=== PATIENT | female | born 1975 | race Caucasian/White ===

== ENCOUNTER 2020-02-18 01:55 | Emergency (ER) | payer OTHER ==
[~2020-02-18] VITALS: Ht 157.4 cm; Wt 86.4 kg
[2020-02-18 02:03] VITALS: BP 155/97
--- OUTSIDE RECORDS SUMMARY | 2020-02-18 02:03 | XMS REPORT | Continuity of Care Document ---
Author Author [facility] Organization [facility] [employer] Address Unknown Phone Unavailable Allergies There is no data. Medications There is no data. Problems There is no data. Procedures There is no data. Results There is no data. Encounters ACCT No. Visit Date/Time Discharge Status Pt. Type Provider Facility Loc./Unit Complaint [id number] 02/18/2020 02:00:[address] Emergency ANDREINA LANDON, TOOTIE Schulte Via [facility] ER FS FELL [place]
[2020-02-18] MEDS ORDERED: KETOROLAC 60 MG/2 ML VIAL IM STA (02:19)
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
== END 2020-02-18 02:29 | disposition home or self-care (01) ==
LOC: ER FS 02:00
DX: S00.83XA Contusion of other part of head, initial encounter (principal); S00.33XA Contusion of nose, initial encounter; S80.02XA Contusion of left knee, initial encounter; R40.2142 Coma scale, eyes open, spontaneous, at arrival to emergency department; R40.2252 Coma scale, best verbal response, oriented, at arrival to emergency department; R40.2362 Coma scale, best motor response, obeys commands, at arrival to emergency department; F17.210 Nicotine dependence, cigarettes, uncomplicated; Z88.5 Allergy status to narcotic agent; W01.198A Fall on same level from slipping, tripping and stumbling with subsequent striking against other object, initial encounter; Y92.828 Other wilderness area as the place of occurrence of the external cause
CPT/HCPCS: 99284

== ENCOUNTER 2020-09-27 05:56 | Emergency (ER) | payer OTHER ==
[2020-09-27] MEDS ORDERED: ONDANSETRON 4 MG (ZOFRAN) ORAL DISSOLVE TAB ONE (06:03)
[2020-09-27] MEDS ORDERED: SUMAtriptan 6 MG/0.5 ML (IMITREX) INJ SQ ONE ×3 (06:03→06:15)
[2020-09-27] MEDS ORDERED: ONDANSETRON 4 MG (ZOFRAN) ORAL DISSOLVE TAB PO STA ×2 (06:08→06:10)
--- NOTE | 2020-09-27 06:16 | ED Headache ---
General Chief Complaint: Head/Cervical Problems Stated Complaint: MIGRAINE Source: patient Exam Limitations: no limitations History of Present Illness Date Seen by Provider: Sep 27, 2020 Time Seen by Provider: 06:00 Initial Comments Patient is a 45-year-old female who presents to the emergency department today with a chief complaint of splitting headache. Patient states her headache started around 9 PM last night. She states she took a low-dose muscle relaxer because she had some neck stiffness. She states it did not help. She tried to go to bed and woke up at 2 AM with worsening headache. Patient states that she has a history of migraines. She states this 1 is different because it does not seem to want to go away. She did not try any ahaq-btm-qwzrhlc medication such as Tylenol, Aleve, Excedrin. She denies any recent illnesses such as fevers, chills, cough or congestion. She has had some nausea and vomiting with this migraine. She denies any visual complaints. All other review of systems reviewed and negative except as stated. Timing/Duration: 4-6 hours Severity/Quality: severe, throbbing Location: global Prior Headaches/Recent Trauma: frequent headaches Modifying Factors: worse with exposure to light, worse with movement Associated Symptoms: nausea/vomiting, stiff neck Allergies and Home Medications Allergies Coded Allergies: hydrocodone (Verified Allergy, Unknown, 02/18/20) oxycodone (Verified Allergy, Unknown, 02/18/20) Patient Home Medication List Home Medication List Reviewed: Yes Review of Systems Review of Systems Constitutional: see HPI Eyes: Photophobia Ears, Nose, Mouth, Throat: no symptoms reported Respiratory: no symptoms reported Cardiovascular: no symptoms reported Gastrointestinal: nausea, vomiting Genitourinary: no symptoms reported Musculoskeletal: muscle pain (neck pain) Skin: no symptoms reported Psychiatric/Neurological: Headache All Other Systems Reviewed Negative Unless Noted: Yes Past Hkewyai-Tckghm-Pdqpug Hx Patient Social History Alcohol Use: Denies Use Smoking Status: Current Everyday Smoker Type Used: Cigarettes Past Medical History Surgeries: Yes Hysterectomy, Oophorectomy Respiratory: No Cardiac: No Neurological: Yes Headaches /Migraines Genitourinary: No Gastrointestinal: No Musculoskeletal: No Endocrine: No HEENT: No Cancer: No Psychosocial: No Integumentary: No Physical Exam Vital Signs Vital Signs - First Documented 09/27/20 05:59 Temp 36.5 Pulse 74 Resp 18 B/P (MAP) 111/92 (98) Pulse Ox 99 O2 Delivery Room Air Capillary Refill : Height, Weight, BMI Height: '" Weight: lbs. oz. kg; 34.00 BMI Method: General Appearance: WD/WN, moderate distress HEENT: PERRL/EOMI Neck: full range of motion, supple Cardiovascular: regular rate, rhythm Respiratory: lungs clear, normal breath sounds, no respiratory distress, no accessory muscle use Extremities: normal inspection Psychiatric: alert, oriented x 3, depressed affect Crainal Nerves: normal hearing, normal speech, PERRL Motor/Sensory: no motor deficit, no sensory deficit Skin: normal color, warm/dry Progress/Results/Core Measures Results/Orders My Orders Orders - MESFIN OROZCO MD Ondansetron Oral Dissolve Tab (Zofran (09/27/20 06:08) Sumatriptan Injection (Imitrex Injection (09/27/20 06:15) Ondansetron Oral Dissolve Tab (Zofran (09/27/20 06:03) Sumatriptan Injection (Imitrex Injection (09/27/20 06:03) Sumatriptan Injection (Imitrex Injection (09/27/20 06:15) Ondansetron Oral Dissolve Tab (Zofran (09/27/20 06:10) Medications Given in ED Current Medications Medications Dose Ordered Sig/Grabiel Route Start Time Stop Time Status Last Admin Dose Admin Sumatriptan Succinate 6 mg ONCE ONCE SQ 09/27/20 06:15 09/27/20 06:16 DC 09/27/20 06:13 6 MG Vital Signs/I&O 09/27/20 09/27/20 05:59 06:55 Temp 36.5 36.5 Pulse 74 74 Resp 18 18 B/P (MAP) 111/92 (98) 111/92 (98) Pulse Ox 99 99 O2 Delivery Room Air Room Air Progress Progress Note : Time: 06:57 Progress Note Patient was feeling much better after zofran and imitrex; ready for discharge. Departure Impression Primary Impression: Migraine Qualified Codes: G43.909 - Migraine, unspecified, not intractable, without status migrainosus Disposition: 01 HOME, SELF-CARE Condition: Stable Departure-Patient Inst. Decision time for Depature: 06:14 Referrals: BOSSMAN DOMINGO MD (PCP/Family) Primary Care Physician Patient Instructions: Migraines (DC) Add. Discharge Instructions: Drink plenty of fluids to stay well hydrated. You can try over the counter medications such as Excedrin Migraine or Alleve for headache. Follow up with your primary care doctor. Return to the Emergency Department for persistent headache symptoms, especially associated with fever, vomiting or any other emergent concerning symptoms. MESFIN OROZCO MD Sep 27, 2020 06:16
[2020-09-27 06:55] VITALS: BP 111/92
== END 2020-09-27 06:57 | disposition home or self-care (01) ==
LOC: EDUNIT# 05:56 → ER FS 05:58
DX: G43.909 Migraine, unspecified, not intractable, without status migrainosus (principal); F17.210 Nicotine dependence, cigarettes, uncomplicated; Z88.5 Allergy status to narcotic agent
CPT/HCPCS: 99284

== ENCOUNTER → 2020-10-07 | Outpatient (CLI) | payer OTHER ==
[~2020-10-07] MED LIST: CATHETER FLUSH 10 ML SYR IV PRN
--- NOTE | 2020-10-07 13:51 | Diagnostic Imaging Report ---
INDICATION: Right upper quadrant pain. Patient received intravenous dose 5.4 mCi tc 99m Choletec sequential imaging of the abdomen performed. There is prompt homogenous distribution of radiopharmacy throughout the liver parenchyma. Within 15 minutes time activity shown within the intra and extra hepatic bile ducts as well as the gallbladder. By 30 minutes activity spilled into the proximal bowel. Gallbladder stimulation was performed with the ingestion of 8 ounces of ensure at the 45 minute interval. This resulted in minimal diminished gallbladder ejection. The estimated ejection fraction was about 28%. IMPRESSION: Decreased gallbladder ejection fraction 28% with ensure stimulation. HIDA scan otherwise normal. Dictated by: Dictated on workstation # [id number]
== END ==
LOC: CARD 09:11
PROVIDERS: ATTEND Family Medicine
DX: R10.11 Right upper quadrant pain (principal)
CPT/HCPCS: 78227; A9537

== ENCOUNTER 2020-10-29 05:30 | Outpatient (CLI) | payer OTHER ==
[~2020-10-29] VITALS: Ht 157.5 cm; Wt 90.5 kg
[2020-10-29] MEDS ORDERED: FLUV50TA3 PO (08:50)
[2020-10-29] MEDS ORDERED: PANT40TA52 PO (08:50)
[2020-10-29] MEDS ORDERED: SMTR50T PO (08:50)
[2020-10-31] MEDS ORDERED: TRM50T PO (08:46)
== END 2020-10-29 09:05 | disposition home or self-care (01) ==
LOC: PREOP 05:30
PROVIDERS: ATTEND Surgery
DX: Z01.818 Encounter for other preprocedural examination (principal)

== ENCOUNTER 2020-10-31 06:07 | Day surgery (SDC) | payer OTHER ==
[~2020-10-31] VITALS: Ht 157.5 cm; Wt 90.5 kg
[2020-10-31] VITALS (10 sets, daily range): BP systolic 114–153; BP diastolic 83–99
[~2020-10-31 06:07] MED LIST changes: -CATHETER FLUSH 10 ML SYR IV PRN; +FLUV50TA3 PO; +PANT40TA52 PO; +SMTR50T PO
[2020-10-31] MEDS ORDERED: ceFAZolin 2 GM IV Premixed 50 ML IV ONE (06:15)
[2020-10-31] MEDS ORDERED: ROCURONIUM 10 MG/ML 5 ML SYRINGE IV ONE (06:31)
[2020-10-31] MEDS ORDERED: ONDANSETRON 4 MG/2 ML (SDV) Z0FRAN ONE (06:31)
[2020-10-31] MEDS ORDERED: LIDOCAINE PF 2% 5 ML (XYLOCAINE) VIAL ONE (06:31)
[2020-10-31] MEDS ORDERED: proPOfol 200 MG/20 ML (DIPRIVAN) VIAL IV ONE (06:31)
[2020-10-31] MEDS ORDERED: SEVOFLURANE (ULTANE) 15 ML INHAL SOLN ONE ×2 (06:32→08:27)
[2020-10-31] MEDS ORDERED: GLYCOPYRROLATE 0.2 MG/ML (ROBINUL) 2 ML VIAL ONE (06:32)
[2020-10-31] MEDS ORDERED: MIDAZOLAM 2 MG/2 ML (VERSED) VIAL ONE (06:32)
[2020-10-31] MEDS ORDERED: NEOSTIGMINE 3 MG/3 ML VIAL ONE (06:32)
[2020-10-31] MEDS ORDERED: fentaNYL INJ 100 MCG/2 ML AMP ONE ×2 (06:32→08:17)
[2020-10-31] MEDS: LACTATED RINGERS 1,000 ML IV PRN ×2 (06:40→08:30)
[2020-10-31] MEDS ORDERED: IOPAMIDOL 61% 30 ML (ISOVUE 300) VIAL ONE (06:51)
[2020-10-31] MEDS ORDERED: LIDOCAINE/EPI 1%-1:100,000 (XYLOCAINE) 20ML ONE (06:52)
[2020-10-31] MEDS ORDERED: CATHETER FLUSH 10 ML SYR IV PRN (07:00)
--- NOTE | 2020-10-31 07:56 | Progress Note-Pre Operative ---
Pre-Operative Progress Note H&P Reviewed The H&P was reviewed, patient examined and no changes noted. Date Seen by Provider: Oct 31, 2020 Time Seen by Provider: 07:56 Date H&P Reviewed: Oct 31, 2020 Time H&P Reviewed: 07:56 Pre-Operative Diagnosis: biliary dyskinesia, abdominal pain CUCA ZIMMERMAN DO Oct 31, 2020 07:56
--- NOTE | 2020-10-31 08:45 | Progress Note-Post Operative ---
Post-Operative Progess Note Surgeon (s)/Floater Operator (s) Surgeon CUCA ZIMEMRMAN DO Floater Operator: Dr. Casillas to assist in retraction dissection and closure. Pre-Operative Diagnosis biliary dyskinesia, abdominal pain Post-Operative Diagnosis same Procedure & Operative Findings Date of Procedure 10/31/20 Procedure Performed/Findings PROCEDURE: Laparoscopic cholecystectomy with intraoperative cholangiogram. COMPLICATIONS: None. PROCEDURE: The patient was taken to the operating suite and was prepped and draped in sterile fashion. A surgical pause was performed. Just superior to the umbilicus, a 12 mm incision was made. Dissection was taken down to the fascia, which was then scored and grasped with a Ken and the abdomen was then entered. A 0 Vicryl suture was placed in a dlytdn-dc-cooay fashion and a Finley trocar was placed and secured. Pneumoperitoneum was achieved. A 5mm trochar place in the subxyphoid and 2 in the right upper quadrant. The gallbladder was then grasped and elevated. Adhesions taken down off of the gallbladder with blunt and cautery dissection. The cystic duct, and cystic artery were then dissected out. Clip was placed on the distal portion of the cystic duct which was then partially transected. An arrow catheter was inserted into the duct. The cholangiogram was then performed. No filing defects and contrast made its way into the duodenum. Catheter removed. Clips were placed on proximal portion of the cystic duct and then the duct was then transected. Clips were placed along the proximal and distal portion of the cystic artery which was then transected. Hook cautery was used to dissect the gallbladder from the gallbladder fossa achieving hemostasis. The gallbladder was placed in an Endobag and removed through the 12 mm trocar site. The abdomen was then reinspected. Copious amounts of irrigation were used to irrigate the abdomen and there were no signs of active bleeding. Hemostasis had been achieved. The 12 mm fascial defect was then closed with 0 Vicryl suture that had been placed in a jpkvel-er-[id number] fashion. The abdomen was then desufflated, the trocars were removed. The abdomen was then washed and dried. The skin was then closed using 4-0 Monocryl in a subcuticular fashion. The abdomen was washed and dried and Skin Affix was place over incisions. Patient tolerated the procedure well without any complications and was taken to the recovery room in stable condition. Anesthesia Type general Estimated Blood Loss Estimated blood loss (mL): minimal Specimens/Packing Specimens Removed gallbladder CUCA ZIMMERMAN DO Oct 31, 2020 08:45
[2020-10-31] MEDS ORDERED: TRM50T PO (08:46)
--- NOTE | 2020-10-31 08:47 | Discharge Inst-Simple/Standard ---
Discharge Inst-Standard Discharge Medications New, Converted or Re-Newed RX: RX on Chart Patient Instructions/Follow Up Plan of Care/Instructions/FU: 2-3 weeks Emeterio Activity as Tolerated: No Discharge Diet: Regular Diet Other Inst to Patient Follow up Appt: Make appointment for 2 weeks. Instructions: No lifting greater than 10 pounds. No strenuous activity. May shower in 24 hours, no tub bath or soaking. Use incentive spirometer at home as directed. No Smoking Skin/Wound Care: You have special glue over incision, it will fall off on it's own. Symptoms to Report: Appetite Changes, Extremity Discoloration, Numbness/Tingling, Swelling Increased, Bleeding Excessive, Eyesight Changes, Pain Increased, Urine Color Change, Constipation(Persistent), Fever over 101 degree F, Pain/Pressure in ch est, Urinating Difficulty, Cough Up/Vomit Blood, Heart Beat Irreg/Pounding, Pain/Pressure in jaw, Vaginal Bleeding Increase, Cramps in feet or legs, Lightheadedness, Pain/Pressure in shoulder, Diarrhea(Persistent), Memory Changes Suddenly, Questions/Concerns, Weight gain consecutive days, Dizziness/Fainting, Nausea/Vomiting, Shortness of Breath, Weight gain over 2 pounds. If eyes or skin turn yellow notify physician. If questions or concerns contact your physician Or seek help at emergency department. CUCA ZIMMERMAN DO Oct 31, 2020 08:47
[2020-10-31] MEDS ORDERED: HYDROmorphone 2 MG/ML VIAL (DILAUDID) IV ONE (09:00)
[2020-10-31] MEDS ORDERED: ONDANSETRON 4 MG/2 ML (SDV) Z0FRAN IVP PRN (09:00)
[2020-10-31] MEDS ORDERED: morphine INJ 10 MG/ML 1ML (SYR OR VIAL) IVP ONE (09:00)
[2020-10-31] MEDS ORDERED: morphine INJ 10 MG/ML 1ML (SYR OR VIAL) ONE (09:16)
--- NOTE | 2020-10-31 09:39 | Anesthesia-General Post-Op ---
General Patient Condition Mental Status/LOC: Same as Preop Cardiovascular: Satisfactory Nausea/Vomiting: Absent Respiratory: Satisfactory Pain: Controlled Complications: Absent Post Op Complications Complications None Follow Up Care/Instructions Patient Instructions None needed. Anesthesia/Patient Condition Patient Condition Patient is doing well, C/O some abd pain which is to be expected, stable vital signs, no apparent adverse anesthesia problems. CLAUDIA LACEY DO Oct 31, 2020 09:39
--- NOTE | 2020-10-31 09:58 | Diagnostic Imaging Report ---
EXAM: Fluoroscopy at 8:32 AM INDICATION: Laparoscopic cholecystectomy Fluoroscopic assistance was provided for Dr. Kishore Storm during the patient's laparoscopic cholecystectomy procedure. 7.7 seconds of fluoroscopy time was utilized. 35 spot films of the right upper quadrant were received from the OR. There has been opacification of the common bile duct via a cystic duct catheter. The common bile duct does not appear to be dilated and there is no defect within the duct to suggest a retained calculus. Contrast is seen extending into the small bowel and into the main pancreatic duct. IMPRESSION: Fluoroscopic assistance was provided for Dr. Kishore Storm. Dictated by: Dictated on workstation # [id number]
== END 2020-10-31 10:50 | disposition home or self-care (01) ==
LOC: SDC 06:07
PROVIDERS: ATTEND Surgery
DX: K81.1 Chronic cholecystitis (principal); K82.8 Other specified diseases of gallbladder; F41.9 Anxiety disorder, unspecified; G43.909 Migraine, unspecified, not intractable, without status migrainosus; K21.9 Gastro-esophageal reflux disease without esophagitis; E66.9 Obesity, unspecified; Z68.36 Body mass index [BMI] 36.0-36.9, adult; F17.210 Nicotine dependence, cigarettes, uncomplicated; Z90.710 Acquired absence of both cervix and uterus; Z79.899 Other long term (current) drug therapy
CPT/HCPCS: 76000; 87081; 88304

== ENCOUNTER 2021-06-26 01:50 | Emergency (ER) | payer OTHER ==
[~2021-06-26] VITALS: Ht 157 cm; Wt 89.0 kg
[~2021-06-26 01:50] MED LIST changes: +FLUV50TA23 PO; -FLUV50TA3 PO; +TRM50T PO
[2021-06-26 01:53] VITALS: BP 117/69
[2021-06-26] MEDS ORDERED: PANTOPRAZOLE 40 MG (PROTONIX) VIAL IV STA (02:04)
[2021-06-26] MEDS ORDERED: ASPIRIN 81 MG CHEW (CHILDREN'S ASA) PO ONE (02:15)
[2021-06-26] MEDS ORDERED: LIDOCAINE 2% VISCOUS 15 ML UDC PO ONE (02:15)
[2021-06-26] MEDS ORDERED: ANTACID SUSP 30 ML UDC (MYLANTA) PO ONE (02:15)
--- NOTE | 2021-06-26 02:18 | ED Chest Pain ---
General Chief Complaint: Cardiac/General Problems Stated Complaint: CHEST PAIN Nursing Triage Note: Pt c/o center chest tightness x 20 mintues that woke her up from sleep. Pt denies cardiac hx. Source: patient History of Present Illness Date Seen by Provider: Jun 26, 2021 Time Seen by Provider: 01:54 Initial Comments 46-year-old female presenting with complaints of tightness and pressure in the middle of her chest that woke her from sleep about 20 minutes prior to arrival. She denies any history of cardiac disease for herself or in her family. She denies having symptoms like this in the past. She did not try taking any medications or do anything for the pain at home. She immediately rushed to the emergency department to be evaluated. She had been using a rowing machine prior to going to bed and was not having any pain or discomfort at that time. She denies any nausea or vomiting. She denies feeling sick prior to going to bed. She has had no cough, fever, chills, shortness of breath, headache. She denies any pain in her calves or swelling in her feet Severity/Quality: moderate, pressure Location: central Radiation: no radiation Activities at Onset: sleep Prior CP/Workup: no prior chest pain, no prior cardiac workup ASA po ADOBE ARCHITECT: No NTG SL ADOBE ARCHITECT: No Associated Symptoms: No abdominal pain, No back pain, No diaphoresis, No dizziness, No edema, No fatigue, No fever/chills, No headache, No heartburn, No nausea/vomiting, No rash, No shortness of breath, No swelling/lump in chest, No syncope Allergies and Home Medications Allergies Coded Allergies: hydrocodone (Verified Allergy, Unknown, 02/18/20) oxycodone (Verified Allergy, Unknown, 02/18/20) Patient Home Medication List Home Medication List Reviewed: Yes Fluvoxamine Maleate (Fluvoxamine Maleate) Unknown Strength Tablet, 1 TAB PO HS, (Reported) Entered as Reported by: KARINE GARCIA on 10/29/20 0850 Pantoprazole Sodium (Pantoprazole Sodium) 40 Mg Tablet.dr, 40 MG PO HS, (Reported) Entered as Reported by: KARINE GARCIA on 10/29/20 0850 Prednisone (Prednisone) 20 Mg Tab, 40 MG PO DAILY Prescribed by: TOOTIE HDZ on 06/26/21 0449 Sumatriptan Succinate (Imitrex) Unknown Strength Tab, 1 TAB PO UD PRN for migraines, (Reported) Entered as Reported by: KARINE GARCIA on 10/29/20 0850 Tramadol HCl (Tramadol HCl) 50 Mg Tablet, 50 MG PO Q4H PRN for PAIN-MODERATE (5- 7) Prescribed by: CUCA ZIMMERMAN on 10/31/20 0846 Tramadol HCl (Tramadol HCl) 50 Mg Tablet, 50 MG PO Q6H PRN for PAIN-SEVERE (8- 10) Prescribed by: TOOTIE HDZ on 06/26/21 0450 Review of Systems Review of Systems Constitutional: No chills, No fever EENTM: No Symptoms Reported Respiratory: No Symptoms Reported Cardiovascular: See HPI Gastrointestinal: No Symptoms Reported Genitourinary: No Symptoms Reported Musculoskeletal: no symptoms reported Skin: no symptoms reported Psychiatric/Neurological: Anxiety Endocrine: No Symptoms Reported Hematologic/Lymphatic: No Symptoms Reported Past Gcavjfe-Gysbhy-Qtzhdv Hx Patient Social History Tobacco Use?: Yes Tobacco type used: Cigarettes Smoking Status: Current Everyday Smoker Seasonal Allergies Seasonal Allergies: No Past Medical History Surgeries: Yes Abdominal, Gallbladder, Hysterectomy, Oophorectomy Respiratory: No Cardiac: No Neurological: Yes Headaches /Migraines Genitourinary: No Gastrointestinal: Yes Gall Bladder Disease Musculoskeletal: No Endocrine: No HEENT: No Cancer: No Psychosocial: Yes Anxiety Integumentary: No Blood Disorders: No Physical Exam Vital Signs Vital Signs - First Documented Capillary Refill : Less Than 3 Seconds Height, Weight, BMI Height: '" Weight: lbs. oz. kg; 36.00 BMI Method: General Appearance: Anxious, Obese HEENT: PERRL/EOMI, Pharynx Normal Neck: Full Range of Motion, Normal Inspection, Non Tender, Supple Respiratory: Chest Non Tender, Lungs Clear, Normal Breath Sounds, No Accessory Muscle Use, No Respiratory Distress Cardiovascular: Regular Rate, Rhythm, Normal Peripheral Pulses Gastrointestinal: Normal Bowel Sounds, No Pulsatile Mass, Non Tender, Soft Rectal: Deferred Extremity: Normal Capillary Refill, Normal Inspection, No Pedal Edema Neurologic/Psychiatric: Alert, Oriented x3, manager of pmo II-XII Norm as Tested Skin: Normal Color, Warm/Dry Progress/Results/Core Measures Results/Orders Lab Results Laboratory Tests Test 06/26/21 02:05 06/26/21 03:45 Range/Units White Blood Count 17.9 H 4.3-11.0 10^3/uL Red Blood Count 4.61 3.80-5.11 10^6/uL Hemoglobin 14.4 11.5-16.0 g/dL Hematocrit 43 35-52 % Mean Corpuscular Volume 93 80-99 fL Mean Corpuscular Hemoglobin 31 25-34 pg Mean Corpuscular Hemoglobin Concent 34 32-36 g/dL Red Cell Distribution Width 13.2 10.0-14.5 % Platelet Count 337 130-400 10^3/uL Mean Platelet Volume 10.8 9.0-12.2 fL Immature Granulocyte % (Auto) 1 % Neutrophils (%) (Auto) 68 42-75 % Lymphocytes (%) (Auto) 20 12-44 % Monocytes (%) (Auto) 7 0-12 % Eosinophils (%) (Auto) 3 0-10 % Basophils (%) (Auto) 1 0-10 % Neutrophils # (Auto) 12.3 H 1.8-7.8 X 10^3 Lymphocytes # (Auto) 3.6 1.0-4.0 X 10^3 Monocytes # (Auto) 1.3 H 0.0-1.0 X 10^3 Eosinophils # (Auto) 0.6 H 0.0-0.3 10^3/uL Basophils # (Auto) 0.1 0.0-0.1 10^3/uL Immature Granulocyte # (Auto) 0.1 0.0-0.1 10^3/uL Neutrophils % (Manual) 66 % Lymphocytes % (Manual) 18 % Monocytes % (Manual) 2 % Eosinophils % (Manual) 6 % Basophils % (Manual) 1 % Band Neutrophils 1 % Atypical Lymphocytes 1 % Reactive Lymphocytes 5 % Platelet Estimate NORMAL Blood Morphology Comment NORMAL Prothrombin Time 12.3 12.2-14.7 SEC INR Comment 0.9 0.8-1.4 Activated Partial Thromboplast Time 29 24-35 SEC D-Dimer 0.22 0.00-0.49 UG/ML Sodium Level 140 135-145 MMOL/L Potassium Level 3.6 3.6-5.0 MMOL/L Chloride Level 105 98-107 MMOL/L Carbon Dioxide Level 25 21-32 MMOL/L Anion Gap 10 5-14 MMOL/L Blood Urea Nitrogen 11 7-18 MG/DL Creatinine 0.74 0.60-1.30 MG/DL Estimat Glomerular Filtration Rate 85 BUN/Creatinine Ratio 15 Glucose Level 128 H 70-105 MG/DL Calcium Level 9.7 8.5-10.1 MG/DL Corrected Calcium 9.3 8.5-10.1 MG/DL Magnesium Level 1.9 1.6-2.4 MG/DL Total Bilirubin 0.2 0.1-1.0 MG/DL Aspartate Amino Transf (AST/SGOT) 15 5-34 U/L Alanine Aminotransferase (ALT/SGPT) 20 0-55 U/L Alkaline Phosphatase 85 40-136 U/L Troponin I < 0.30 < 0.30 <0.30 NG/ML Pro-B-Type Natriuretic Peptide 19.4 <75.0 PG/ML Total Protein 6.8 6.4-8.2 GM/DL Albumin 4.5 3.2-4.5 GM/DL My Orders Orders - ENYATOOTIE SMITH MD Cbc With Automated Diff (06/26/21 02:04) Magnesium (06/26/21 02:04) Chest 1 View Ap/Pa Only (06/26/21 02:04) Ekg Tracing (06/26/21 02:04) Comprehensive Metabolic Panel (06/26/21 02:04) Protime With Inr (06/26/21 02:04) Partial Thromboplastin Time (06/26/21 02:04) Monitor-Rhythm Ecg Trace Only (06/26/21 02:04) Aspirin Chewable Tablet (Baby Aspirin Ch (06/26/21 02:15) Ed Iv/Invasive Line Start (06/26/21 02:04) Troponin I Fs (06/26/21 02:04) Probnp Fs (06/26/21 02:04) Pantoprazole Injection (Protonix Injecti (06/26/21 02:04) Lidocaine 2% Viscous 15 Ml (Xylocaine Vi (06/26/21 02:15) Antacid Suspension (Mylanta Suspension (06/26/21 02:15) Fibrin Degradation Products (06/26/21 02:04) Manual Differential (06/26/21 02:05) Ketorolac Injection (Toradol Injection) (06/26/21 03:25) Lorazepam Injection (Ativan Injection) (06/26/21 03:25) Ns Iv 1000 Ml (Sodium Chloride 0.9%) (06/26/21 03:25) Troponin I Fs (06/26/21 03:45) Methylprednisolone Sod Succ (Solu-Medrol (06/26/21 04:44) Medications Given in ED Current Medications Medications Dose Ordered Sig/Grabiel Route Start Time Stop Time Status Last Admin Dose Admin Al Hydrox/Mg Hydrox/Simethicone 30 ml ONCE ONCE PO 06/26/21 02:15 06/26/21 02:16 DC 06/26/21 02:14 30 ML Aspirin 324 mg ONCE ONCE PO 06/26/21 02:15 06/26/21 02:16 DC 06/26/21 02:14 324 MG Lidocaine HCl 15 ml ONCE ONCE PO 06/26/21 02:15 06/26/21 02:16 DC 06/26/21 02:14 15 ML Vital Signs/I&O 06/26/21 06/26/21 06/26/21 06/26/21 01:53 01:53 03:22 04:30 Temp 36.9 36.9 Pulse 92 92 85 105 Resp 14 14 14 14 B/P (MAP) 117/69 (85) 117/69 (85) 102/65 117/71 Pulse Ox 98 98 97 96 O2 Delivery Room Air Room Air Room Air Room Air Blood Pressure Mean: 85 Progress Progress Note #1: Progress Note Obtain electrocardiogram with basic labs and chest x-ray. Patient does report having a history of a hiatal hernia but states it felt different than this. However the fact that she was asleep when her symptoms came on and has no cardiac history as well as she was using a rowing machine without having any chest pain prior to bed does make it seem more likely that this might be GI related or related back to her hiatal hernia. Will give 324 mg of aspirin as well as try dose of pantoprazole IV. Give a GI cocktail p.o. Progress Note #2: Progress Note Her CBC had an elevated white blood cell count. Her chest x-ray did not show any definite acute infiltrate on my review of the film. Her chemistry and c ardiac enzymes were negative. Her coags and D-dimer to screen for blood clot were negative. Patient denies any change in her pain with the treatment so far in the ED. Will add on a dose of Toradol for pain and inflammation along with 0.5 mg of Ativan for helping her relax, anxiety, muscle spasms. Give a liter of normal saline IV fluids for hydration. Recheck the troponin since it has been almost 2 hours since she arrived in the ED. Progress Note #3: Progress Note On recheck of the patient after some of the fluids and clonidine as well as Toradol and 0.5 mg Ativan which she had improved pain. She stated that her pain was almost completely resolved. She still had mild pain with a deep breath. The repeat troponin was still less than 0.3. Counseled on results and advised to avoid the rowing machine in case some of this was muscle related and costochondritis. Some of it also sounded pleuritic in nature so we will continue a steroid for few days. Use tramadol for severe pain. Return or check back through the clinic if still not improving by Wednesday. She was having some tachycardia prior to discharge. Unsure if this was related back to stress or anxiety. The elevated white blood cell count likely was related back to stress since there was no definite infection found on any of her testing Initial ECG Impression Date: Jun 26, 2021 Initial ECG Impression Time: 01:51 Initial ECG Rate: 94 Initial ECG Rhythm: Normal Sinus Initial ECG Comparisson: No Previous ECG Available Comment Normal sinus rhythm with a heart rate of [address] elevation. [place] interval 136 ms. QT interval 351 ms with a QTc interval 439 ms. There is no prior tracing available for comparison. Diagnostic Imaging Diagonstic Imaging: Xray Plain Films/CT/US/NM/MRI: chest Comments On my review of her 1 view chest x-ray she has no definite acute infiltrate [facility], [place] NAME: SUJATHA BANDA [facility] REC#: [id number] PT STATUS: REG ER : 1975 PHYSICIAN: TOOTIE HDZ MD ADMIT DATE: 06/26/21/ER FS Draft Date of Exam:06/26/21 CHEST 1 VIEW AP/PA ONLY INDICATION: Chest tightness. EXAMINATION: Chest 06/26/2021 FINDINGS: The cardiomediastinal silhouette is unremarkable. The pulmonary vasculature is within normal limits. The lungs and pleural spaces are clear. IMPRESSION: No evidence of an acute cardiopulmonary process. Dictated on workstation # [id number] Dict: 06/26/21 0433 Trans: 06/26/21 0436 [facility] [id number] Interpreted by: CT ESCOBAR MD Electronically signed by: Reviewed: Reviewed by Me Departure Impression Primary Impression: Substernal chest pain Additional Impressions: Pleuritic chest pain Costochondritis, acute Disposition: 01 HOME, SELF-CARE Condition: Stable Departure-Patient Inst. Decision time for Depature: 04:46 Referrals: BOSSMAN DOMINGO MD (PCP/Family) Primary Care Physician Patient Instructions: Pleuritic Chest Pain ED, Chest Pain, Adult ED, Costochondritis Add. Discharge Instructions: Your heart tests were negative for signs of a heart attack or heart damage and the screening tests to look for blood clots were also negative. With the pain being worse with deep breaths this may be more pain of the chest wall or pleuritic in nature. Using the steroid to help with inflammation and pain will help your symptoms. Avoid using the rowing machine for a few days to let your chest muscles rest and recover. Return or seek medical care if you have worsening symptoms or are not improving by Wednesday All discharge instructions reviewed with patient and/or family. Voiced understanding. Scripts Tramadol HCl (Tramadol HCl) 50 Mg Tablet 50 MG PO Q6H PRN for PAIN-SEVERE (8-10) for 3 Days, #12 TAB 0 Refills Prov: TOOTIE HDZ MD 06/26/21 Prednisone (Prednisone) 20 Mg Tab 40 MG PO DAILY for pleuritic pain for 4 Days, #8 TAB 0 Refills Prov: TOOTIE HDZ MD 06/26/21 Work/School Note: Work Release Form Date Seen in the Emergency Department: Jun 26, 2021 Return to Work: Jun 30, 2021 Restrictions: No Restrictions TOOTIE HDZ MD Jun 26, 2021 02:18
[2021-06-26 02:29] LABS: BASOPHILS % (AUTO) 1 % (0-10); EOSINOPHILS % (AUTO) 3 % (0-10); HEMATOCRIT 43 % (35-52); HEMOGLOBIN 14.4 g/dL (11.5-16.0); LYMPHOCYTES % (AUTO) 20 % (12-44); MEAN CORPUSCULAR HEMOGLOBIN 31 pg (25-34); MEAN CORPUSCULAR HGB CONC 34 g/dL (32-36); MEAN CORPUSCULAR VOLUME 93 fL (80-99); MEAN PLATELET VOLUME 10.8 fL (9.0-12.2); MONOCYTES % (AUTO) 7 % (0-12); NEUTROPHILS % (AUTO) 68 % (42-75); PLATELET COUNT 337 10^3/uL (130-400); WHITE BLOOD COUNT 17.9 10^3/uL (4.3-11.0)
[2021-06-26 02:30] LABS: BASOPHILS # (AUTO) 0.1 10^3/uL (0.0-0.1); EOSINOPHILS # (AUTO) 0.6 10^3/uL (0.0-0.3); LYMPHOCYTES # (AUTO) 3.6 X 10^3 (1.0-4.0); MONOCYTES # (AUTO) 1.3 X 10^3 (0.0-1.0); NEUTROPHILS # (AUTO) 12.3 X 10^3 (1.8-7.8)
[2021-06-26 02:33] LABS: FIBRIN DEGRADATION PRODUCTS 0.22 UG/ML (0.00-0.49); INR 0.9 (0.8-1.4); PROTHROMBIN TIME PATIENT 12.3 SEC (12.2-14.7)
[2021-06-26 02:55] LABS: ALBUMIN 4.5 GM/DL (3.2-4.5); BILIRUBIN,TOTAL 0.2 MG/DL (0.1-1.0); CALCIUM 9.7 MG/DL (8.5-10.1); CREATININE SERUM 0.74 MG/DL (0.60-1.30); MAGNESIUM 1.9 MG/DL (1.6-2.4); POTASSIUM 3.6 MMOL/L (3.6-5.0); TOTAL PROTEIN 6.8 GM/DL (6.4-8.2)
[2021-06-26 02:56] LABS: BAND NEUTROPHILS 1 %; NEUTROPHILS % (MANUAL) 66 %
[2021-06-26 02:57] LABS: ATYPICAL LYMPHOCYTES 1 %; BASOPHILS % (MANUAL) 1 %; EOSINOPHILS % (MANUAL) 6 %; LYMPHOCYTES % (MANUAL) 18 %; MONOCYTES % (MANUAL) 2 %; PLATELET ESTIMATE NORMAL; RBC MORPH NORMAL; REACTIVE LYMPHOCYTES 5 %
[2021-06-26] MEDS ORDERED: NS IV 1000 ML 1,000 ML IV STA (03:25)
[2021-06-26] MEDS ORDERED: KETOROLAC 30 MG/ML VIAL IVP STA (03:25)
[2021-06-26] MEDS ORDERED: LORazepam INJ 2 MG/ML (ATIVAN) VIAL IVP STA (03:25)
--- NOTE | 2021-06-26 04:36 | Diagnostic Imaging Report ---
INDICATION: Chest tightness. EXAMINATION: Chest 06/26/2021 FINDINGS: The cardiomediastinal silhouette is unremarkable. The pulmonary vasculature is within normal limits. The lungs and pleural spaces are clear. IMPRESSION: No evidence of an acute cardiopulmonary process. Dictated by: Dictated on workstation # [id number]
[2021-06-26] MEDS ORDERED: methylPREDNISolone 125 MG (Solu-MEDROL) VIAL IVP STA (04:44)
[2021-06-26] MEDS ORDERED: PRD20T PO (04:49)
[2021-06-26] MEDS ORDERED: TRM50T PO (04:49)
== END 2021-06-26 05:00 | disposition home or self-care (01) ==
LOC: EDUNIT# 01:50 → ER FS 01:53
DX: R07.81 Pleurodynia (principal); M94.0 Chondrocostal junction syndrome [Tietze]; E66.9 Obesity, unspecified; F41.9 Anxiety disorder, unspecified; G43.909 Migraine, unspecified, not intractable, without status migrainosus; Z68.36 Body mass index [BMI] 36.0-36.9, adult; F17.210 Nicotine dependence, cigarettes, uncomplicated; Z79.899 Other long term (current) drug therapy
CPT/HCPCS: 36415; 71045; 80053; 83735; 83880; 84484; 85007; 85027; 85379; 85610; 85730; 93005; 93041